=== PATIENT | female | born 1990 | race Caucasian/White ===

== ENCOUNTER → 2017-01-05 | Outpatient (CLI) | payer BC ==
[2017-01-09 15:37] LABS: CHLAMYDIA TRACH RNA*** NOT DETECTED (NOT DETECTED); GC (NEIS GONORRHOEAE)RNA** NOT DETECTED (NOT DETECTED)
== END | disposition home or self-care (01) ==
LOC: C.LABSPEC 13:31
PROVIDERS: ATTEND Obstetrics & Gynecology
DX: Z01.419 Encounter for gynecological examination (general) (routine) without abnormal findings (principal)

== ENCOUNTER 2024-03-05 16:38 | Inpatient (IN) ==
[2024-03-05] MEDS ORDERED: LIDOCAINE 1% LOCAL 20 ML VIAL INFIL PRN (21:00)
[2024-03-05] MEDS ORDERED: OXYTOCIN 30 UNITS/NSS 30 UNITS/500 ML BAG IV PRN (21:00)
[2024-03-05 21:32] LABS: Hematocrit (blood only) 34.4 % (37.0-47.0); Hemoglobin 11.4 g/dl (12.0-16.0); Mean Corpuscular Hemoglobin 28.6 pg (25.0-34.0); Mean Corpuscular Hgb Conc 33.1 g/dL (32.0-36.0); Mean Corpuscular Volume 86.2 fL (80.0-100.0); Mean Platelet Volume 10.1 fL (9.4-12.4); Platelet Count 242 K/uL (130-400); RDW Coefficient of Variation 14.1 % (11.5-14.5); RDW Standard Deviation 43.9 fL (36.4-46.3); Red Blood Count 3.99 M/uL (4.20-5.40); White Blood Count 13.61 K/ul (4.8-10.8)
[2024-03-05] MEDS: LACTATED RINGER'S 1,000 ML IV PRN (22:27)
[2024-03-05] MEDS: OXYTOCIN 30 UNITS/NSS 30 UNITS/500 ML BAG IV PRN (22:28)
--- NOTE | 2024-03-05 23:35 | History & Physical Report ---
Date of Service March 05, 2024 Assessment & Plan (1) Encounter for induction of labor: (2) Post-dates : Plan admit, iv, labs. simeon placed, start pitocin, epidural when desires. fhts categ 1. Admission and Anticipated Discharge Date Admission Date: March 05, 2024 History of Present Illness Chief Complaint: induction postdates Primary Care Provider: NO PCP 33yo at 40+wks ega for planned induction for postdates. Late entry as I attended vaginal delivery and then c/s in succession, despite having seen the pt before vaginal delivery. No rom, vb. +FM. No ctx PNC c/b 1. hypothyroid PNL rh pos, ri, gbs neg OBH: g1 GYNH: no pap, no stds Allergies Allergy/AdvReac Type Severity Reaction Status Date / Time No Known Drug Allergies Allergy Verified 03/04/24 09:55 Home Medications Medication Instructions Recorded Confirmed Type cholecalciferol (vitamin D3) PO 07/20/23 03/04/24 History levothyroxine 137 mcg capsule 137 mcg PO DAILY 07/20/23 03/05/24 History 21-iron fu-folic acid PO 07/20/23 03/04/24 History [ Complete] ferrous sulfate 325 mg (65 mg 325 mg PO DAILY 03/05/24 03/05/24 History iron) tablet (Iron (ferrous sulfate)) Patient History Medical History (Updated 03/05/24 @ 23:34 by Mariam Prescott MD, FACOG) Asthma Varicella vaccination History of chicken pox Surgical History S/P cholecystectomy History of tonsillectomy History of wisdom tooth extraction Family History Mother Cervical cancer Endometriosis Grandmother (Paternal) Diabetes Hypertension Grandmother (Maternal) Colorectal cancer Father Hypertension Denies family history of Ovarian cancer Breast cancer Uterine cancer Social History Smoking Status: Never smoker Second Hand Exposure: No; Do You Dip or Chew Tobacco: No; Hx Substance Use: No Preferred Language: Lithuanian Communication Ability: Effective Degreaser Required: No Beliefs That Will Affect Care: None marital status: marital status details: Oscar Daniel (33) [phone] Current Living Situation: Spouse Current Living Situation Comment: lives with spouse, no pets current occupational status: employed 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 [employer] 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 Other Information That Helps Us Care for You: No Feels Safe at Home: Yes Safety Concerns: Feels Safe At This Time Assistive Devices: Glasses Review of Systems as per Subjective / HPI Physical Exam Constitutional: WD/WN, vitals as above Respiratory: normal respiratory effort, lungs clear to auscultation Cardiovascular: Rate/Rhythm: regular rate and regular rhythm Gastrointestinal (Abdomen): soft gravid nt efw 7-8# Musculoskeletal: no edema nontender calves Neurologic: grossly normal Psychiatric: A+Ox3, euthymic affect Genitourinary: Manual OB Exam: + cervical dilation fingertip, + cervical effacement (long) and + station -2 OB Exam Monitor Tracing: + external FHT monitor used, + external uterine monitor used, + category I and + normal FHT variability PROCEDURE: sse cx visualized, grasped on ant lip with ring forcep, simeon through os and balloon inflated with 40cc sterile water. Spec removed, simeon taped to leg. pt ehsan well. Results & Data Vital Signs (Past 12 Hours) Vital Signs Temp Pulse Resp BP 03/05/24 23:29 75 117/62 03/05/24 22:28 68 114/62 03/05/24 20:41 77 121/78 03/05/24 20:37 97.9 F 20 Coding Level of Care Code None Diagnoses Encounter for induction of labor Z34.90 Post-dates O48.0 CPT Codes Misx Procedure Codes - 88014 Placement of cervical dilator: 14387 Placement of cervical dilator ([id number])
[2024-03-06] MEDS ORDERED: BUPIVACAINE 0.25% PF 30 ML VIAL EPI PRN (00:04)
[2024-03-06] MEDS ORDERED: NALOXONE HCL 0.4 MG/1 ML VIAL/CARP IV PRN (00:04)
[2024-03-06] MEDS ORDERED: ROPIVACAINE 0.5% PF 5 MG/ML 20 ML VIAL EPI PRN (00:04)
[2024-03-06] MEDS ORDERED: LIDOCAINE 2% MPF LOCAL 5 ML VIAL EPI PRN (00:04)
[2024-03-06] MEDS ORDERED: diphenhydrAMINE 50 MG/ML VIAL IV PRN (00:04)
[2024-03-06] MEDS ORDERED: fentaNYL citrate PF 100 MCG/2 ML VIAL EPI PRN (00:04)
[2024-03-06] MEDS ORDERED: SODIUM CHLORIDE 0.9% PF INJ 10 ML VIAL EPI PRN (00:04)
[2024-03-06] MEDS ORDERED: ePHEDrine sulfate 50 MG/ML AMP IV PRN (00:04)
[2024-03-06] MEDS ORDERED: NALOXONE HCL 1 MG in SODIUM CHLORIDE 0.9% 1,000 ML IV PRN (00:04)
[2024-03-06] MEDS ORDERED: NALBUPHINE HCL 5 MG in SYRINGE 0 ML IV PRN (00:04)
--- NOTE | 2024-03-06 00:04 | Anesthesiology Consultation ---
Date of Service March 06, 2024 Assessment & Plan Chart Review Chart Review: Acceptable Risk for Labor Epidural Consults Requested none History Height/Weight Height: 5 ft 6 in Weight: 95.617 kg Allergies Allergy/AdvReac Type Severity Reaction Status Date / Time No Known Drug Allergies Allergy Verified 03/04/24 09:55 Medications Home Medications Medication Instructions Recorded Confirmed Last Taken cholecalciferol (vitamin D3) PO 07/20/23 03/04/24 Unknown levothyroxine 137 mcg capsule 137 mcg PO DAILY 07/20/23 03/05/24 03/05/24 21-iron fu-folic acid PO 07/20/23 03/04/24 Unknown [ Complete] ferrous sulfate 325 mg (65 mg 325 mg PO DAILY 03/05/24 03/05/24 Unknown iron) tablet (Iron (ferrous sulfate)) Active Medications Generic Name Dose Route Start Last Admin Trade Name Freq PRN Reason Stop Dose Admin Lactated Ringer's 1,000 mls @ 125 mls/hr 03/05/24 21:00 03/05/24 22:27 Lr IV 03/07/24 20:59 125 mls/hr .Q8H PRN Administration L&D Protocol Protocol Oxytocin 30 units in 500 mls @ 6 mls/hr 03/05/24 21:54 03/05/24 23:30 Pitocin 30 Units/Nss IV 03/07/24 21:53 0.36 units/hr .Q24H PRN 6 mls/hr Labor Induction/Augmentation Titration Protocol 0.36 UNITS/HR Past Medical History Medical History (Updated 03/05/24 @ 23:34 by Mariam Prescott MD, FACOG) Asthma Varicella vaccination History of chicken pox Past Family History Family History Mother Cervical cancer Endometriosis Grandmother (Paternal) Diabetes Hypertension Grandmother (Maternal) Colorectal cancer Father Hypertension Denies family history of Ovarian cancer Breast cancer Uterine cancer Past Surgical History Surgical History S/P cholecystectomy History of tonsillectomy History of wisdom tooth extraction Social History Smoking Status: Never smoker Do You Dip or Chew Tobacco: No Hx Substance Use: No Review of Systems Constitutional: as per Subjective / HPI Physical Exam Vital Signs Last Vital Signs Temp 36.5 C 05/01/24 23:30 Pulse 120 H 03/06/24 00:03 Resp 18 03/05/24 23:30 BP 117/62 03/05/24 23:29 Constitutional WD/WN, vitals as above Respiratory normal respiratory effort, lungs clear to auscultation Cardiovascular Rate/Rhythm: regular rate and regular rhythm Psychiatric A+Ox3, euthymic affect Genitourinary Manual OB Exam: + cervical dilation + fingertip, + cervical effacement (long) and + station + -2 OB Exam Monitor Tracing: + external FHT monitor used, + external uterine monitor used, + category I and + normal FHT variability Testing Laboratory Results 03/05/24 21:11
[2024-03-06] MEDS: LIDOCAINE 2%/EPINEPHRINE 1:200,000 20 ML PF ONE (00:23)
[2024-03-06] MEDS: fentANYL 2 MCG/ML BUPIVacaine 0.125%-NSS 100ML BAG ONE (00:23)
[2024-03-06] MEDS: fentaNYL citrate PF 100 MCG/2 ML VIAL EPI STA (00:53)
[2024-03-06] MEDS: SODIUM CHLORIDE 0.9% PF INJ 10 ML VIAL ONE (00:54)
[2024-03-06] MEDS: BUPIVACAINE 0.25% PF 30 ML VIAL ONE (00:54)
[2024-03-06] MEDS: BUPIVACAINE 0.25% PF 30 ML VIAL EPI STA (00:54)
[2024-03-06] MEDS: LIDOCAINE 2%/EPINEPHRINE 1:200,000 20 ML PF EPI STA (00:54)
[2024-03-06] MEDS: ePHEDrine sulfate 50 MG/ML AMP ONE (00:54)
[2024-03-06] MEDS: SODIUM CHLORIDE 0.9% PF INJ 10 ML VIAL EPI STA (00:54)
[2024-03-06] MEDS: fentaNYL citrate PF 100 MCG/2 ML VIAL ONE (00:55)
[2024-03-06] MEDS: LEVOTHYROXINE SODIUM 137 MCG TABLET PO SCH (06:29)
[2024-03-06] MEDS: fentANYL 2 MCG/ML BUPIVacaine 0.125%-NSS 100ML BAG EPI PRN (07:05)
--- NOTE | 2024-03-06 08:29 | Labor Progress Brief Note ---
Date of Service March 06, 2024 Subjective has had urge to push, per nursing 10cm Assessment & Plan (1) Post-dates : (2) Encounter for induction of labor: Plan given ant lip rec position change, knee chest if possible. and then reeval to begin 2nd stage soon. fhts categ 1. Admission and Anticipated Discharge Date Admission Date: March 05, 2024 Physical Exam Constitutional: WD/WN, vitals as above Genitourinary: Manual OB Exam: + cervical dilation (ant lip), + cervical effacement 100% and + station + 1 OB Exam Monitor Tracing: + external FHT monitor used, + external uterine monitor used (q2), + category I and + normal FHT variability tried to push through ant lip, large volume of urine with good maternal effort Results & Data Vital Signs (Past 12 Hours) Vital Signs Temp Pulse Resp BP Pulse Ox 03/06/24 08:23 77 97 03/06/24 08:18 77 98 03/06/24 08:17 80 122/89 03/06/24 08:13 72 97 03/06/24 08:08 69 96 03/06/24 08:03 72 97 03/06/24 08:00 83 115/78 03/06/24 07:58 72 97 03/06/24 07:53 74 97 03/06/24 07:48 72 97 03/06/24 07:43 73 98 03/06/24 07:38 74 97 03/06/24 07:33 81 97 03/06/24 07:31 74 117/68 03/06/24 07:30 18 03/06/24 07:30 18 03/06/24 07:28 80 98 03/06/24 07:23 85 98 03/06/24 07:18 81 97 03/06/24 07:13 75 96 03/06/24 07:08 71 96 03/06/24 07:03 76 96 03/06/24 07:01 77 99/64 L 03/06/24 07:00 97.5 F L 75 18 96 03/06/24 07:00 18 03/06/24 07:00 18 03/06/24 06:59 71 106/53 L 03/06/24 06:58 70 97 03/06/24 06:53 75 96 03/06/24 06:48 74 96 03/06/24 06:43 77 97 03/06/24 06:38 87 97 03/06/24 06:33 72 94 05 06:32 73 119/68 03/06/24 06:30 18 03/06/24 06:30 18 03/06/24 06:28 78 96 03/06/24 06:23 73 95 03/06/24 06:18 80 94 03/06/24 06:15 76 111/67 03/06/24 06:13 80 94 03/06/24 06:08 82 95 03/06/24 06:03 75 95 03/06/24 06:00 82 20 112/67 03/06/24 05:58 81 95 03/06/24 05:53 81 95 03/06/24 05:52 90 94 03/06/24 05:48 90 95 03/06/24 05:47 91 H 99/55 L 03/06/24 05:43 107 H 97 03/06/24 05:38 99 H 96 03/06/24 05:33 85 96 03/06/24 05:30 77 18 106/58 L 03/06/24 05:28 79 95 03/06/24 05:24 85 94 03/06/24 05:23 78 95 03/06/24 05:19 76 94 03/06/24 05:18 79 95 03/06/24 05:15 80 106/59 L 03/06/24 05:13 81 95 03/06/24 05:12 76 94 03/06/24 05:08 84 95 03/06/24 05:05 83 94 03/06/24 05:03 85 95 03/06/24 05:01 70 110/62 0502 05:00 79 18 94 05 04:58 85 95 03/06/24 04:53 88 96 03/06/24 04:48 85 96 05 04:47 76 110/65 0502 04:43 79 96 05 04:38 73 96 03/06/24 04:33 84 95 03/06/24 04:31 75 117/68 0502 04:28 84 96 0502 04:23 88 96 0502 04:18 64 96 0502 04:16 60 110/70 05/02/24 04:13 65 95 03/06/24 04:11 77 93 03/06/24 04:08 73 95 03/06/24 04:06 74 94 03/06/24 04:03 72 95 03/06/24 04:01 72 111/66 03/06/24 03:58 73 95 03/06/24 03:53 75 95 03/06/24 03:48 65 95 03/06/24 03:46 67 111/61 03/06/24 03:43 65 95 03/06/24 03:38 66 96 03/06/24 03:33 70 97 03/06/24 03:30 97.9 F 62 18 108/67 03/06/24 03:28 64 96 03/06/24 03:23 86 96 03/06/24 03:18 78 96 03/06/24 03:16 69 105/57 L 03/06/24 03:13 74 96 03/06/24 03:08 73 97 03/06/24 03:03 78 96 03/06/24 03:01 78 102/63 03/06/24 03:00 18 03/06/24 03:00 18 03/06/24 02:58 85 96 03/06/24 02:53 80 96 03/06/24 02:48 74 97 03/06/24 02:46 75 106/62 03/06/24 02:43 81 96 03/06/24 02:38 82 96 03/06/24 02:33 78 95 03/06/24 02:31 75 101/56 L 03/06/24 02:30 18 03/06/24 02:30 18 03/06/24 02:28 77 96 03/06/24 02:23 81 96 03/06/24 02:18 79 96 03/06/24 02:16 74 102/60 03/06/24 02:13 75 96 03/06/24 02:08 91 H 97 03/06/24 02:03 81 96 03/06/24 02:01 66 109/60 03/06/24 02:00 20 03/06/24 02:00 20 03/06/24 01:58 66 96 03/06/24 01:53 87 95 03/06/24 01:51 101 H 92 03/06/24 01:48 80 95 05/02/24 01:46 83 99/55 L 03/06/24 01:43 78 95 03/06/24 01:42 86 94 03/06/24 01:38 86 95 03/06/24 01:33 95 03/06/24 01:33 79 03/06/24 01:33 84 94 03/06/24 01:30 82 18 97/56 L 03/06/24 01:28 77 95 03/06/24 01:23 85 95 03/06/24 01:18 78 95 03/06/24 01:15 68 16 101/51 L 03/06/24 01:13 84 95 03/06/24 01:08 80 95 03/06/24 01:03 83 95 03/06/24 01:01 75 99/53 L 03/06/24 01:00 18 03/06/24 01:00 18 03/06/24 00:58 77 95 03/06/24 00:53 78 96 03/06/24 00:48 83 96 03/06/24 00:45 77 20 98/54 L 03/06/24 00:43 82 96 03/06/24 00:42 72 114/61 03/06/24 00:39 80 94 03/06/24 00:38 87 95 03/06/24 00:36 81 117/68 03/06/24 00:35 18 03/06/24 00:35 18 03/06/24 00:33 84 96 03/06/24 00:30 85 18 117/56 L 03/06/24 00:28 96 03/06/24 00:28 92 H 03/06/24 00:28 86 115/55 L 03/06/24 00:26 84 110/58 L 03/06/24 00:24 85 119/59 L 03/06/24 00:23 88 97 03/06/24 00:22 20 03/06/24 00:22 20 03/06/24 00:21 97 H 144/85 H 03/06/24 00:18 84 97 03/06/24 00:13 75 98 03/06/24 00:08 79 98 03/06/24 00:03 120 H 97 03/05/24 23:30 18 03/05/24 23:30 97.7 F 18 03/05/24 23:29 75 117/62 03/05/24 22:28 68 114/62 03/05/24 20:41 77 121/78 03/05/24 20:37 97.9 F 20 Coding Level of Care Code None Diagnoses Post-dates O48.0 Encounter for induction of labor Z34.90
[2024-03-06] MEDS ORDERED: OXYTOCIN 30 UNITS/NSS 30 UNITS/500 ML BAG IV PRN (13:17)
[2024-03-06] MEDS ORDERED: oxyCODONE/ACETAMINOPHEN 5mg/325mg TAB PO PRN (13:17)
[2024-03-06] MEDS ORDERED: bisacodyL 10 MG SUPP PR PRN (13:17)
[2024-03-06] MEDS ORDERED: HYDROCORTISONE ACETATE 25 MG SUPP PR PRN (13:17)
[2024-03-06] MEDS ORDERED: ACETAMINOPHEN 325 MG TAB PO PRN (13:17)
--- NOTE | 2024-03-06 13:29 | Delivery Summary ---
Vaginal Delivery Summary Date of Service March 06, [address] [facility] PREOPERATIVE DIAGNOSIS: 1. Single intrauterine at 41 wga 2. Late term IOL 3. Hypothyroid POSTOPERATIVE DIAGNOSIS: 1. Single intrauterine at 41 wga 2. Late term IOL 3. Hypothyroid 4. Delivered PROCEDURE: 1. Normal spontaneous vaginal delivery. SURGEON: Sonali Kim MD ANESTHESIA: Epidural. QUANTITATIVE BLOOD LOSS: 117 mL FLUIDS: Continuous LR. URINE OUTPUT: None. COMPLICATIONS: Shoulder dystocia CONDITION: Stable. INDICATIONS: 33 yo G1 at 41 wga FINDINGS: A viable male infant, weight 8lb 10oz with Apgars of 6 and 9 at 1 and 5 minutes respectively. SPECIMEN: Cord blood, cord gas OPERATIVE REPORT: The patient progressed to 10 cm, 100% effaced and +2 station, pushed over intact perineum with anesthesia to deliver a viable male infant, weight and Apgars as above. Head of delivered in OLMAN position. Nuchal cord was noted but not easily delivered through. Head did not deliver with gentle downward traction so shoulder dystocia was called. Head of bed lowered, McRobert's maneuver and suprapubic pressure were applied but shoulder did not deliver with gentle downward traction. Posterior arm could not be reached so rotational maneuver was performed and anterior shoulder spontaneously delivered then. Remainder of body delivered without difficulty. was delivered to maternal abdomen and nursing staff. Delayed cord clamping was deferred for further attention from nursery staff. Cord was clamped and cut. Cord blood was obtained. Placenta delivered spontaneously intact with 3-vessel cord. IV oxytocin and fundal massage were given for excellent hemostasis. Vagina, cervix, perineum, and placenta were inspected. A left vaginal laceration was repaired using 3-0 vicryl. A Right superior labial laceration was repaired with an interrupted 4-0 vicryl stitch. There was excellent hemostasis. Sponge and needle counts correct x2. No sponges were left behind. Mother and stable in immediate period. Shoulder dystocia events were reviewed with patient and partner [facility] Vaginal Delivery Charge Vaginal Delivery Codes: 63090 global code for the antepartum, delivery, and post- Delivery Type Details: [facility]
[2024-03-06] MEDS: DIPHTHER/TETAN/PERTUS Vaccine (Tdap, Adol/Adult) 0.5mL IM ONE (14:39)
--- NOTE | 2024-03-06 14:40 | Anesthesia Procedure Note ---
Date of Service March 06, 2024 Anesthesia Post Epidural Note Vital Signs Vital Signs: Temp Pulse Resp BP Pulse Ox 97.7 F 90 16 120/76 95 03/06/24 10:30 03/06/24 14:38 03/06/24 12:00 03/06/24 14:25 03/06/24 14:38 Pain Intensity Right Lower Abdomen: Pain Intensity: 4 Notes Mental Status: alert / awake / arousable and participated in evaluation Nausea / Vomiting: adequately controlled Pain: adequately controlled Airway Patency, RR, SpO2: stable & adequate BP & HR: stable & adequate Hydration State: stable & adequate Neuraxial Anesthesia: was administered and sensory block is resolving Anesthetic Complications: no major complications apparent and Pt Satisfied with anesthetic care Epidural: Removed without complications and With tip intact
[2024-03-06 14:53] LABS: Base Excess Cord Arterial Bld -11.5 mEq/L (-9-1.8); CO2 Cord Arterial Blood 82 mmHg (39.1-73.5); HCO3 Cord Arterial Blood 21 mmol/L (19.7-28.5); Oxygen Sat Cord Arterial Blood < 60.0 % (<60); PO2 Cord Arterial Blood 20 mmHg (4.1-31.7); pH Cord Arterial Blood 7.02 (7.1-7.38)
[2024-03-06 14:54] LABS: Base Excess Cord Venous Blood -4.8 mEq/L (-7.7-1.9); Cord Venous Blood HCO3 21 mmol/L (18.4-26.8); Cord Venous Blood PCO2 41 mmHg (30.4-57.2); Cord Venous Blood PO2 42 mmHg (14.1-43.3); Cord Venous Blood pH 7.32 (7.20-7.44); O2 Saturation Cord Venous Bld 77.1 % (<68)
[2024-03-06] MEDS: BENZOCAINE 20% SPRY 85 APPLN/85 GM CAN EXT PRN (18:14)
[2024-03-06] MEDS: IBUPROFEN 600 MG TAB PO PRN (20:12)
[2024-03-06] MEDS: DOCUSATE SODIUM 100 MG CAP PO SCH (20:12)
[2024-03-07 06:32] LABS: Hematocrit (blood only) 30.8 % (37.0-47.0); Hemoglobin 10.1 g/dl (12.0-16.0); Mean Corpuscular Hemoglobin 28.3 pg (25.0-34.0); Mean Corpuscular Hgb Conc 32.8 g/dL (32.0-36.0); Mean Corpuscular Volume 86.3 fL (80.0-100.0); Mean Platelet Volume 10.4 fL (9.4-12.4); Platelet Count 220 K/uL (130-400); RDW Standard Deviation 43.9 fL (36.4-46.3); Red Blood Count 3.57 M/uL (4.20-5.40); White Blood Count 19.41 K/ul (4.8-10.8)
--- NOTE | 2024-03-07 07:01 | Obstetrical Progress Note ---
Date of Service March 07, 2024 Assessment & Plan (1) care following vaginal delivery: Plan: Doing well Routine post care anticipate dc tomorrow Admission and Anticipated Discharge Date Admission Date: March 05, 2024 Supervising Physician Co-Signing Physician Notes Resident Physician Supervision Note: I interviewed and examined the patient. Discussed with Dr. Mg and agree with findings and plan as documented in the note. Any exceptions or clarifications are listed here: PP1 s/p ,doing well. VSS, exam benign and wnl. Continue routine care Documented By: Soanli Kim MD Subjective 33 yo post day 1 s/p Ambulation: ambulating normally Voiding: no voiding problems Passing Gas:: Yes Diet Tolerance:: regular diet Lochia:: Small Feeding Type:: breast feeding Current Pain Level: minimal Resting comfortably this AM in NAD. Denies SHARPE, CP, SOB, N/V/D, LE pain/swelling. Review of Systems Review of Systems: reviewed, per HPI Physical Exam Physical Exam: General: patient resting comfortably, NAD, non-toxic in appearance, answers questions appropriately. Skin: warm, dry, intact HEENT: NC/AT, anicteric sclera, conjunctiva without injection, moist mucus membranes. Heart: +S1/S2, regular, no m/r/g Lungs: equal air entry bilaterally, no rales/rhonchi/wheezes Abd: +BS, soft, NT/ND, uterine fundus firm at umbilicus. Ext: warm, no clubbing/cyanosis or edema, Vicenta's neg. Neuro: nonfocal, speech intact, no facial droop, moving all extremities. Results & Data Vital Signs (Past 12 Hours) Vital Signs Temp Pulse Resp BP Pulse Ox O2 Del Method 03/07/24 02:41 36.6 C 67 18 106/71 97 Room Air 03/06/24 23:15 36.9 C 65 18 106/67 96 Room Air 03/06/24 20:15 36.8 C 81 18 125/74 98 Room Air Resident Activity Tracking Resident Involvement: Resident Care Provided Care Provided: Adult [facility] Medicine
[2024-03-07] MEDS: PRENATAL VITAMIN 1 TAB PO SCH (08:40)
[2024-03-07] MEDS: bisacodyL 5 MG TABEC PO SCH (21:32)
--- NOTE | 2024-03-08 07:05 | Obstetrical Progress Note ---
Date of Service March 08, 2024 Assessment & Plan (1) care following vaginal delivery: Plan: Doing well Routine post care DC today Admission and Anticipated Discharge Date Admission Date: March 05, 2024 Supervising Physician Co-Signing Physician Notes Resident Physician Supervision Note: I interviewed and examined the patient. Discussed with Dr. Mg and agree with findings and plan as documented in the note. Any exceptions or clarifications are listed here: [None] Documented By: Reyna Almeida MD, FACOG Subjective 33 yo post day 2 s/p Ambulation: ambulating normally Voiding: no voiding problems Passing Gas:: Yes Diet Tolerance:: regular diet Lochia:: Small Feeding Type:: breast feeding Current Pain Level: minimal Resting comfortably this AM in NAD. Denies SHARPE, CP, SOB, N/V/D, LE pain/swelling. Review of Systems Review of Systems: reviewed, per HPI Physical Exam Physical Exam: General: patient resting comfortably, NAD, non-toxic in appearance, answers questions appropriately. Skin: warm, dry, intact HEENT: NC/AT, anicteric sclera, conjunctiva without injection, moist mucus membranes. Heart: +S1/S2, regular, no m/r/g Lungs: equal air entry bilaterally, no rales/rhonchi/wheezes Abd: +BS, soft, NT/ND, uterine fundus firm at umbilicus. Ext: warm, no clubbing/cyanosis or edema, Vicenta's neg. Neuro: nonfocal, speech intact, no facial droop, moving all extremities. Results & Data Vital Signs (Past 12 Hours) Vital Signs Temp Pulse Resp BP Pulse Ox O2 Del Method 03/07/24 23:05 36.8 C 79 20 129/79 97 Room Air 03/07/24 19:40 37.1 C 77 18 128/79 98 Room Air Resident Activity Tracking Resident Involvement: Resident Care Provided Care Provided: Adult Hospital Medicine
[2024-03-08 07:09] LABS: Hematocrit (blood only) 31.8 % (37.0-47.0); Hemoglobin 10.2 g/dl (12.0-16.0)
== END 2024-03-08 12:55 | disposition home or self-care (01) | DRG 807 ==
LOC: 4S1 20:18 → 4E2 03-06 15:30